=== PATIENT | male | born 1975 | race African-American/Black ===

== ENCOUNTER 2020-03-18 22:27 | Emergency (ER) | payer OTHER ==
[~2020-03-18] VITALS: Ht 175.3 cm; Wt 86.4 kg
[2020-03-18] MEDS ORDERED: LIDOCAINE 1% 10 ML VIAL INJ ONE (23:45)
[2020-03-19 01:00] VITALS: BP 139/75
== END 2020-03-19 01:17 | disposition home or self-care (01) ==
LOC: EMS 22:27
DX: S81.011A Laceration without foreign body, right knee, initial encounter (principal); F12.90 Cannabis use, unspecified, uncomplicated; W22.8XXA Striking against or struck by other objects, initial encounter; Y93.39 Activity, other involving climbing, rappelling and jumping off; Y92.89 Other specified places as the place of occurrence of the external cause; Y99.8 Other external cause status
CPT/HCPCS: 12002; 73090; 73562; 99284; J3490